=== PATIENT | male | born 1970 | race Two or more races ===

== ENCOUNTER 2016-02-26 20:35 | Emergency (ER) | payer MEDICAID ==
[~2016-02-26] VITALS: Ht 165.1 cm; Wt 81.3 kg
[2016-02-27] MEDS ORDERED: HYDROcodone-ACET 5/325MG TAB PO ONE (03:30)
[2016-02-27 04:03] VITALS: BP 147/91
== END 2016-02-27 04:31 | disposition home or self-care (01) ==
LOC: ER 20:41
DX: S66.513A Strain of intrinsic muscle, fascia and tendon of left middle finger at wrist and hand level, initial encounter (principal); S66.515A Strain of intrinsic muscle, fascia and tendon of left ring finger at wrist and hand level, initial encounter; K21.9 Gastro-esophageal reflux disease without esophagitis; Z87.11 Personal history of peptic ulcer disease; Z87.891 Personal history of nicotine dependence; X50.0XXA Overexertion from strenuous movement or load, initial encounter; X50.9XXA Other and unspecified overexertion or strenuous movements or postures, initial encounter; Y93.89 Activity, other specified; Y99.8 Other external cause status; Y92.39 Other specified sports and athletic area as the place of occurrence of the external cause
CPT/HCPCS: 73140